=== PATIENT | male | born 2000 | race Two or more races ===

== ENCOUNTER 2021-05-15 18:43 | Emergency (ER) | payer SELFPAY ==
[~2021-05-15] VITALS: Ht 177.8 cm; Wt 81.6 kg
[2021-05-15 18:49] VITALS: BP 116/69
== END 2021-05-15 20:01 | disposition left against medical advice (07) ==
LOC: EDBD 18:43 → ER 18:43
DX: M54.2 Cervicalgia (principal); M54.9 Dorsalgia, unspecified; Z53.21 Procedure and treatment not carried out due to patient leaving prior to being seen by health care provider

== ENCOUNTER 2024-12-19 09:11 | Emergency (ER) | payer SELFPAY ==
[~2024-12-19] VITALS: Ht 175.3 cm; Wt 102.4 kg
[2024-12-19 09:49] VITALS: BP 139/85; PULSE 91; RESP 16; TEMP 97; O2SAT 97
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
[2024-12-19] MEDS ORDERED: BACDST PO (10:31)
[2024-12-19] MEDS ORDERED: IBUP-1456 PO (10:31)
== END 2024-12-19 10:38 | disposition home or self-care (01) ==
LOC: ER 09:11
DX: K61.1 Rectal abscess (principal); Z88.0 Allergy status to penicillin; Z79.1 Long term (current) use of non-steroidal anti-inflammatories (NSAID)
CPT/HCPCS: 46040